=== PATIENT | male | born 1980 | race African-American/Black ===

== ENCOUNTER 2022-10-10 05:05 | Emergency (ER) | payer OTHER ==
[~2022-10-10] VITALS: Ht 190.5 cm; Wt 127.0 kg
--- NOTE | 2022-10-10 05:41 | NUR ---
COVID SWAB DONE AND SENT TO LAB
--- NOTE | 2022-10-10 07:41 | NUR ---
COVID RESULT IN 15MINS PER LAB
--- NOTE | 2022-10-10 07:52 | NUR ---
COVID NEGATIVE PER RESULT/LAB; PT MEDICALLY-CLEARED FOR BOOKING. DISCHARGED TO LAW [employer]CEMENT, IN STABLE CONDITION, ACCOMPANIED BY [facility] [employer]. DISCHARGED PAPERS PROVIDED, VERBALIZED UNDERSTANDING.
[2022-10-10 07:55] VITALS: BP 138/70
== END 2022-10-10 07:56 ==
LOC: ER 05:09
DX: Z20.822 Contact with and (suspected) exposure to COVID-19 (principal)
CPT/HCPCS: 99283; 87426; C9803